=== PATIENT | male | born 1955 | race Caucasian/White ===

== ENCOUNTER 2016-07-21 06:39 | Day surgery (SDC) | payer BC ==
[2016-07-19 13:27] LABS: BASOPHILS 0.5 %; BASOPHILS ABSOLUTE 0.02 10/3/uL (0.0-0.16); EOSINOPHILS 1.8 %; EOSINOPHILS ABSOLUTE 0.07 10/3/uL (0.0-0.53); HEMATOCRIT 38.9 % (40.0-51.0); HEMOGLOBIN 13.6 g/dL (13.6-17.8); IMMATURE GRANULOCYTES 1.8 %; IMMATURE GRANULOCYTES ABSOLUTE 0.07 10/3/uL (0.0-0.11); LYMPHOCYTES 34.3 %; MEAN CORPUSCULAR VOLUME 91.5 fL (80-100); MEAN PLATELET VOLUME 9.3 fL (9.2-13.0); MONOCYTES 9.8 %; MONOCYTES ABSOLUTE 0.37 10/3/uL (0.21-1.20); NEUTROPHILS 51.8 %; NEUTROPHILS ABSOLUTE 1.96 10/3/uL (2.02-8.40); PLATELET COUNT 286 10/3/uL (150-400); RBC DISTRIBUTION WIDTH 13.1 % (12.0-16.0); RED CELL COUNT 4.25 10/6/uL (4.7-6.1); WHITE BLOOD CELLS 3.8 10/3/uL (4.5-10.5)
[2016-07-19 13:28] LABS: MANUAL DIFF NO %
[2016-07-19 13:43] LABS: A/G RATIO 1.5 (0.7-1.9); ALKALINE PHOSPHATASE 76 U/L (45-117); BUN (BLOOD UREA NITROGEN) 10 MG/DL (6-23); CALCIUM, SERUM 9.6 MG/DL (8.5-10.4); CHLORIDE, SERUM 103 MMOL/L (96-112); CO2 (CARBON DIOXIDE) 30 MMOL/L (24-34); CREATININE 0.81 MG/DL (0.70-1.30); GFR AFRICAN AMERICAN 112 ML/MIN (>=60); GFR NON AFRICAN AMERICAN 97 ML/MIN (>=60); GLOBULIN 2.7 G/DL (2.5-4.1); GLUCOSE, SERUM 94 MG/DL (60-99); POTASSIUM, SERUM 5.3 MMOL/L (3.5-5.3); SGOT(AST) 28 U/L (5-40); SGPT(ALT) 39 U/L (5-65); SODIUM, SERUM 138 MMOL/L (135-148); TOTAL BILIRUBIN 0.4 MG/DL (0-1.2); TOTAL PROTEIN 6.7 G/DL (6.0-8.5)
--- NOTE | ~2016-07-21 | PREOPHP ---
PreOp History and Physical [id number] [place]. [address] NAME: GURPREET AMAYA : 57 [place]US : [place] [facility] [place] [id number] AGE: 61 ADM/REG DATE : 07/21/16 MR#: [id number] REPORT SERV DATE: 07/23/16 DICTATED BY: KOKI VALLECILLO III DATE: 07/13/16 REPORT STATUS : Draft TRANSCRIBED BY: MODL DATE: 07/13/16 HISTORY OF PRESENT ILLNESS: This 61-year-old male comes to the operating room for laparoscopic cholecystectomy, possible laparotomy, for symptomatic acalculous cholecystitis. The patient complains of a four to five year history of intermittent episodes of right upper quadrant abdominal pain. The pain has recently become worse. The pain has not been associated with nausea. The patient has evidence for acalculous cholecystitis. He comes to the operating room now for laparoscopic cholecystectomy, possible laparotomy. PAST MEDICAL HISTORY: Hypertension. ALLERGIES: NONE. MEDICATIONS: Amoxicillin, omeprazole, valsartan, clarithromycin, sertraline. FAMILY HISTORY: Unremarkable. SOCIAL HISTORY: No history of tobacco use. The patient does have a history of alcohol use. REVIEW OF SYSTEMS: The patient complains of weight gain, fatigue, fever and back pain. His 14-point review of systems is otherwise unremarkable. PHYSICAL EXAMINATION: GENERAL: Reveals a male, in no acute distress. He is alert and oriented x3. VITAL SIGNS: Blood pressure 119/77, pulse 72, temperature 98.1. HEENT: Unremarkable. Cranial nerves 2 through 12 were normal. LUNGS: Clear. CARDIAC: Normal. ABDOMEN: Soft with mild tenderness in the right upper quadrant. EXTREMITIES: Normal. LABORATORY DATA: HIDA scan shows an abnormal ejection fraction of 16%. Gallbladder ultrasound is normal. ASSESSMENT: 1. A 61-year-old male with symptomatic acalculous cholecystitis. 2. Hypertension. PLAN: The patient comes to the operating room now for laparoscopic cholecystectomy, possible laparotomy. This procedure, the risks, benefits, and alternatives, including but not limited to the risk for bleeding, infection, common bile duct injury, bile leak, retained common bile stone, enterotomy, or injury to any abdominal structure, the definite possible need for laparotomy, the possible persistence of his symptoms unrelieved by surgery, possibility of postoperative diarrhea or incisional hernia, and unforeseen complications including deep venous thrombosis, pulmonary embolus, myocardial infarction, stroke, pneumonia, , have been fully and completely explained to the patient in length prior to surgery. The fact that this is a major operation with risk for major morbidity and PreOp History and Physical [address] [address] NAME: GURPREET AMAYA : 57 [place]US : [place] [facility] [place]#: [id number] AGE: 61 ADM/REG DATE : 07/21/16 MR#: [id number] REPORT SERV DATE: 07/23/16 DICTATED BY: KOKI VALLECILLO III DATE: 07/13/16 REPORT STATUS : Draft TRANSCRIBED BY: MODHaresh DATE: 07/13/16 mortality and no guarantee for relief of his symptoms has been explained. The expected length of recovery with both open and laparoscopic procedures has been explained. The patient's questions have been answered. He fully understands the risks and agrees to surgery as planned. RHRene/ALYSA Koki Vallecillo III, M.D. / [id number]
--- NOTE | ~2016-07-21 | OP ---
Record Of Operation [facility] [address] [place]. [address] NAME: GURPREET AMAYA : 57 [place] : [place] [facility] [place] [id number] AGE: 61 ADM/REG DATE : 07/21/16 MR#: [id number] REPORT SERV DATE: 07/21/16 DICTATED BY: KOKI VALLECILLO III DATE: 07/21/16 REPORT STATUS : Draft TRANSCRIBED BY: MODL DATE: 07/21/16 DATE OF PROCEDURE: 07/21/2016 PREOPERATIVE DIAGNOSIS: Symptomatic acalculous cholecystitis. POSTOPERATIVE DIAGNOSIS: Symptomatic acalculous cholecystitis. PROCEDURE: Laparoscopic cholecystectomy. ANESTHESIA: General with intubation. COMPLICATIONS: None. ESTIMATED BLOOD LOSS: Less than 30 mL. SPECIMENS: Gallbladder. DRAINS: None. LAP AND SPONGE COUNT: Correct x3. BRIEF HISTORY: This 61-year-old male, presented with evidence for symptomatic acalculous cholecystitis. It was felt that laparoscopic cholecystectomy, possible laparotomy, was indicated. This procedure, the risks, benefits, and alternatives, including, but not limited to the risk for bleeding, infection, common bile duct injury, bile leak, retained common bile stone, enterotomy, or injury to any abdominal structure, the definite possible need for laparotomy, the possible persistence of his symptoms unrelieved by surgery, the possibility of postop diarrhea or incisional hernia, and unforeseen complications including deep venous thrombosis, pulmonary embolus, myocardial infarction, stroke, pneumonia, and , were fully and completely explained to the patient's family prior to surgery. The fact that this was a major operation with risk for major morbidity and mortality, no guarantee for relief of his symptoms were explained. The expected length of the recovery with open laparoscopic procedures was explained. The patient had questions, which were answered. He fully understood the risks and agreed to surgery as planned. FINDINGS: The patient's gallbladder cassidy were thickened, inflamed, and there were adhesions between the gallbladder and omentum consistent with cholecystitis. The liver and remainder of the upper abdomen were otherwise unremarkable as far as we could determine through the laparoscope. PROCEDURE: After being appropriately identified and after discussing the risks of surgery with the patient and his family in the preoperative area, the patient was taken to the operating room and placed in the supine position on the operating room table. General anesthesia was administered. He was intubated without difficulty. The abdomen was prepped and draped sterilely in the usual fashion. After an appropriate "time-out" per [facility] standards, a small transverse incision was made below the umbilicus. The skin and fascia on Record Of Operation [facility] [address] [place]. [address] NAME: GURPREET AMAYA : 57 STATUS : [place] [facility] [place]#: [id number] AGE: 61 ADM/REG DATE : 07/21/16 MR#: [id number] REPORT SERV DATE: 07/21/16 DICTATED BY: KOKI VALLECILLO III DATE: 07/21/16 REPORT STATUS : Draft TRANSCRIBED BY: MODL DATE: 07/21/16 either side was elevated with towel clips. A Veress needle was placed through the incision into the peritoneal cavity. Correct position of the needle in the peritoneal cavity was confirmed by the hanging drop test. The abdominal cavity was then insufflated to about 13 mmHg with carbon dioxide. Correct position of air in the peritoneal cavity was confirmed by palpation. The Veress needle was removed and replaced with 10-mm trocar. The laparoscope was placed through this. The patient was placed in the reverse Trendelenburg position and to his left. A second 10-mm trocar was placed just below the xiphoid process, to the right of the falciform ligament, under direct vision with the laparoscope. Two 5-mm trocars were placed along the right subcostal margin, one in the midaxillary line, the other in the midclavicular line. These were also placed under direct vision with the laparoscope. The upper abdomen was inspected. The gallbladder appeared to be chronically diseased. The gallbladder cassidy were thickened and inflamed consistent chronic cholecystitis. The liver and remainder of the upper abdomen were otherwise unremarkable as far as we could determine through the laparoscope. The appropriate instruments were placed through the trocars. The gallbladder was grasped and the infundibulum of the gallbladder was retracted laterally and inferiorly so as to expose the triangle of Calot. Using careful sharp and blunt dissection, the cystic duct was carefully and meticulously defined proximally and distally. The cystic duct was fairly long. The junction of the cystic duct with the common bile duct was appreciated, but not skeletonized. The cystic artery was similarly defined proximally and distally. The fibrous and fatty tissue between these structures was divided so as to clearly identify the critical angle. Once these structures were clearly defined, the cystic duct was clipped using two clips on the common bile duct side and one on the gallbladder side, all placed as close to the gallbladder as possible, taking care not encroach upon or injure the common bile duct in any way. The cystic duct was then divided between these clips as close to the gallbladder as possible. We elected not to perform a cholangiogram because there was no preoperative or intraoperative evidence for biliary dilatation and because the patient's preoperative liver enzymes were normal and because his biliary anatomy was clearly defined. Again, the structure was not divided or clipped until the critical angle and triangle of Calot had been clearly identified. The cystic artery was then similarly clipped and divided as close to the gallbladder as possible. Using the spatula and the cautery, the gallbladder was carefully dissected from the liver bed. This went very well. Before the gallbladder was completely removed, the gallbladder bed and portal areas were irrigated numerous times with saline. The saline was aspirated dry. This process was repeated several times until hemostasis was meticulously and thoroughly assured in all areas. It was also assured that the clips in the portal areas were in good position and there was no extravasation of bile from any accessory bile duct. Once this was assured, the gallbladder was completely dissected away from the liver and placed in the Endopouch. The liver bed was elevated, irrigated, and inspected for meticulous and thorough hemostasis and for absence of any biliary extravasation and to be certain that the clips were in good position. Once this was assured, the gallbladder and Endopouch were brought out through the infraumbilical incision and placed in the laparoscope through the subxiphoid port. The fascia of the infraumbilical incision was closed with 0 Vicryl suture. The lateral two trocars were removed. These two lower trocar sites were inspected on the underside for hemostasis with the laparoscope. Once this was assured, the subxiphoid trocar was removed under direct vision with the laparoscope to assure hemostasis in this incision. The air was removed from the peritoneal cavity through this incision. The skin incisions were inspected for hemostasis, they were closed with running subcuticular 4-0 Monocryl stitches. They were Record Of [address] [place]. [address] NAME: GURPREET AMAYA : 57 [place] : [place] [facility] [place] [id number] AGE: 61 ADM/REG DATE : 07/21/16 MR#: [id number] REPORT SERV DATE: 07/21/16 DICTATED BY: KOKI VALLECILLO III DATE: 07/21/16 REPORT STATUS : Draft TRANSCRIBED BY: MODL DATE: 07/21/16 injected with one-half percent Marcaine. Dressings were applied. Anesthesia was reversed and the patient was taken to the recovery room in stable condition. The patient tolerated the procedure well. His family was informed of the results of surgery. The patient was discharged later when he was stable, comfortable and tolerating liquids and able to void and ambulate. His family was advised that he should remain on a liquid diet today and advance this as tolerated to a regular diet tomorrow. He should keep wounds clean and dry for 48 hours and that he should not drive for 3-4 days after surgery or while using narcotics or Phenergan. They were advised that he should resume his usual medications. He was given a prescription for a narcotic and Phenergan, which he was advised to not take while driving. RHJ/ALYSA Koki Vallecillo III, M.D. / [id number] CC: Cyndee Ibarra III, D.O.
[~2016-07-21 06:39] MED LIST: AMB10 PO; AMOXIL500 MG PO; BIAXIN5 PO; DIOV80 PO; PRILOSEC40 MG PO; SUPER B COMP PO; ZOL100 PO
[2016-07-21 12:12] LABS: HEMATOCRIT 40.1 % (40.0-51.0); HEMOGLOBIN 14.1 g/dL (13.6-17.8)
== END 2016-07-21 23:59 | disposition home or self-care (01) ==
LOC: SDC 06:39
PROVIDERS: Surgery
PROC: 0FT44ZZ Resection of Gallbladder, Percutaneous Endoscopic Approach (ICD-10-PCS; principal; 2016-07-21 07:45)
DX: K81.1 Chronic cholecystitis (principal); I10 Essential (primary) hypertension; Z79.2 Long term (current) use of antibiotics; Z79.899 Other long term (current) drug therapy; Z98.890 Other specified postprocedural states
CPT/HCPCS: 36415; 71020; 80053; 85014; 85018; 85025; 88304; 93005; A9270-GY; J0360; J0690; J1170; J1885; J2250; J2405; J3010